=== PATIENT | female | born 1945 | race Caucasian/White ===

== ENCOUNTER 2022-08-26 14:03 | Outpatient (REF) | payer MEDICARE, OTHER, SELFPAY ==
[2022-08-26 14:16] LABS: MANUAL DIFF FLAG NO
[2022-08-26 14:41] LABS: Basophils Percent Auto 0.5 % (0-2); Eosinophils Absolute Auto 0.1 X10*3/uL (0.0-0.4); Eosinophils Percent Auto 2.1 % (0-4); Hematocrit 45.1 % (37.0-47.0); Hemoglobin 14.9 g/dl (12.0-16.0); Imm Gran Abs Auto 0.01 X10*3/uL (0.00-0.03); Imm Gran Pct Auto 0.2 % (0.0-0.4); Lymphocytes Absolute Auto 1.3 X10*3/uL (1.2-4.9); Lymphocytes Percent Auto 22.8 % (20-40); Mean Corpuscular Hemoglobin 29.3 pg (27.0-33.0); Mean Corpuscular Volume 88.8 fL (80.0-98.0); Mean Platelet Volume 8.9 fL (9.4-12.3); Monocytes Absolute Auto 0.8 X10*3/uL (0.1-1.2); Neutrophils Absolute Auto 3.5 x10*3/uL (2.0-8.3); Neutrophils Percent Auto 61.4 % (45-73); Platelet Count 299 X10*3/uL (160-400); Red Blood Count 5.08 X10*6/uL (4.20-5.50); White Blood Count 5.8 X10*3/uL (4.8-10.8)
[2022-08-26 15:09] LABS: Alanine Aminotransferase 28 U/L (0-31); Albumin Level 4.5 g/dL (3.5-5.0); Alkaline Phosphatase 88 U/L (39-117); Anion Gap 18 (12-20); Aspartate Amino Transferase 28 U/L (5-31); Bilirubin Total 0.6 mg/dL (0.0-1.0); Blood Urea Nitrogen 33 mg/dL (9-16); Calcium 9.4 mg/dL (8.4-10.2); Carbon Dioxide 25 mmol/L (22-29); Chloride 105 mmol/L (96-108); Estimated Glomerular Filt Rate > 60; Glucose Random 94 mg/dL (60-115); Potassium 4.1 mmol/L (3.3-5.1); Sodium 144 mmol/L (135-145); Total Protein 7.2 g/dL (6.5-8.0)
== END 2022-08-26 14:04 | disposition home or self-care (01) ==
LOC: HO.LAB 14:03
PROVIDERS: PCP Family Medicine; Visit Provider Nurse Practitioner
DX: Z01.818 Encounter for other preprocedural examination (principal); D12.6 Benign neoplasm of colon, unspecified
CPT/HCPCS: 36415; 80053; 85025; 99202

== ENCOUNTER 2023-01-14 06:35 | Day surgery (SDC) | payer MEDICARE, SELFPAY ==
[2023-01-11 14:02] VITALS: BMI 35.2
--- NOTE | 2023-01-13 13:38 | P.CONAN_ITS ---
Documented by User: Linda Varghese NP 01/13/23 13:38 HPI - Anesthesia Eval Consult details Narrative: 77yo F for Colonoscopy [facility] Active Problems Active Problems: All Active Problems (Updated 01/11/23 @ 14:01 by Tara Garcia, AMANDEEP) Osteopenia (Acute) Tubular adenoma of colon (Acute) Obesity (BMI 30-39.9) (Acute) Pre-op examination (Acute) Past Medical History Medical History Endometrial cancer Osteopenia Surgical History Surgical History H/O colonoscopy History of total abdominal hysterectomy S/P left knee arthroscopy Status post total left knee replacement Social History Social History Patient Tobacco Use Status: Never used Tobacco Use of substances other than those prescribed or required for medical reasons: No Are you DNR?: No Advance Directives: No Advance Directives Information Provided: Yes Nutrition Risks: No Nutritional Risk Meds Allergies Allergy/AdvReac Type Severity Reaction Status Date / Time No Known Allergies Allergy Unverified 08/26/22 13:10 Home Medications Medication Instructions Recorded Confirmed Last Taken Type alendronate 70 mg tablet 70 mg PO QWEEK 08/26/22 01/11/23 Unknown History Exam Exam Date and Time: January 13, 2023 1338 Height,Weight and Vital Signs: Height 5 ft 1.5 in Weight 86 kg Pertinent Lab Results Pertinent Lab Results: Laboratory Tests 08/26/22 08/26/22 14:16 14:16 WBC 5.8 Hgb 14.9 Hct 45.1 Plt Count 299 Sodium 144 Potassium 4.1 Chloride 105 Carbon Dioxide 25 BUN 33 H Creatinine 0.90 Assessment and Plan Assessment Anesthesia Assessment: Chart Reviewed Documented by User: Hazel Wynn MD 01/14/23 08:10 PMF Past Medical History Medical History Endometrial cancer Osteopenia Family History Family history of problems with anesthesia: No Surgical History Surgical History H/O colonoscopy History of total abdominal hysterectomy S/P left knee arthroscopy Status post total left knee replacement History of Problems with Anesthesia: No Social History Social History Patient Tobacco Use Status: Never used Tobacco Use of substances other than those prescribed or required for medical reasons: No Are you DNR?: No Advance Directives: No Advance Directives Information Provided: Yes Nutrition Risks: No Nutritional Risk Meds Allergies Allergy/AdvReac Type Severity Reaction Status Date / Time No Known Allergies Allergy Unverified 08/26/22 13:10 Home Medications Medication Instructions Recorded Confirmed Last Taken Type alendronate 70 mg tablet 70 mg PO QWEEK 08/26/22 01/11/23 Unknown History Exam Height,Weight and Vital Signs: Height 5 ft 1.5 in Weight 86 kg Vital Signs Temp Pulse Resp BP Pulse Ox O2 Del Method 01/14/23 07:14 98.8 F 80 16 127/72 96 Room Air Airway Mallampati Class: III (Small mouth opening) TM Dist: >3cm Neck ROM: Full Loose/Missing/Broken Teeth: No (Denies broken, loose, missing teeth) Heart: RRR Lungs: CTAB Assessment and Plan Assessment Anesthesia Assessment: Anesthesia Plan Discussed Final Anesthetic Review Family History of Problems with Anesthesia: No History of Problems with Anesthesia: No NPO: Yes ASA Class: II Final Preanesthetic Review: No Changes in Pt Med Stat, Meds/Allgs Chart Reviewed, Consent Obtained/Reviewed and Anes Risks/Benef Reviewed Patient Risk: Low Procedure Risk: Low Assessment/Block/Sedation in SS: Assess/Block/Sedation-SS Anesthetic Plan Anesthetic Plan: MAC: Disposition: Standard PACU
[2023-01-14 07:04] VITALS: BMI 35.1
[2023-01-14 07:14] VITALS: BP 127/72; PULSE 80; RESP 16; TEMP 37.1; O2SAT 96
[2023-01-14] MEDS: Lactated Ringers 1,000 ML 100 ML IVCONT (07:31)
--- NOTE | 2023-01-14 07:33 | ECG_ITS ---
Test Reason : pre op colonoscopy Blood Pressure : / mmHG Vent. Rate : 077 BPM Atrial Rate : 077 BPM P-R Int : 156 ms QRS Dur : 084 ms QT Int : 386 ms P-R-T Axes : 015 -36 -02 degrees QTc Int : 436 ms Normal sinus rhythm Left axis deviation Possible Lateral infarct , age undetermined Abnormal ECG When compared with ECG of 26-JUN-2009 12:36, Borderline criteria for Lateral infarct are now Present Referred By: Hazel Wynn Electronically Signed By:DIVINE FERGUSON
--- NOTE | 2023-01-14 08:11 | MHC.SHP ---
Pre-Procedural Eval Section A Date of Service: 01/14/23 Section B Chief Complaint: screening Relevant Family History (Specify if Yes): No Relevant Social History: None Present Medications: see Short Stay Collaborative assessment Medical History: Significant History (History of endometrial cancer Osteopenia Obesity History of tubular adenoma) History of Previous Operations: Relevant previous surgery/procedure and date(s) (Left knee replacement Diagnostic laparoscopic surgery Hysterectomy Colonoscopy -2002, 2008, 2016, [place]) Allergies: Allergies Allergy/AdvReac Type Severity Reaction Status Date / Time No Known Allergies Allergy Unverified 08/26/22 13:10 Review of Systems Sugical H&P ROS: Negative: Constitution, Cardiovascular, Respiratory, Neurological, Psychiatric, Hem-Onc, Allergic/Immunologic, Gastrointestinal, Genitourinary, Musculoskeletal, Integumentary, Endocrine and Eyes/Ears/Nose/Throat Exam Surgical H&P Exam: Normal: HEENT, Normal: Heart, Normal: Lungs, Normal: Extremities, Normal: Abdomen, Normal: Skin and Normal: Neurological Plan Diagnosis/Plan: Unchanged I have reviewed the history and physical and performed a pertinent physical examination on my patient. No changes have occurred unless specified. Time Spent With Patient Time: Total time managing care of this patient today ____ minutes.
--- NOTE | 2023-01-14 08:13 | W.PM.OPN ---
Operative Note Operative Note Date of Service: 01/14/23 Narrative: Operative Information Procedure Description: Colonoscopy Indication: screening Anesthesia: MAC COLONOSCOPY Instrument: Olympus variable stiffness pediatric scope 190L Colonoscopy Monitoring: Vital signs and clinical assessment, continuous EKG monitoring, Pulse oximetry, Carbon Dioxide monitoring and blood pressure monitoring were done throughout the procedure. Colon withdrawal time was 8 minutes. Procedure: The patient was placed in the left lateral decubitis position and pre-procedure medications were administered. After a digital rectal examination of the ano-rectum, the video colonoscope was inserted into the rectum and advanced through the colon to the cecum/TI. The colonoscope was slowly withdrawn in a retrograde panoramic fashion and the colon mucosa was carefully examined including a retroflexed view of the rectum. Findings and interventions are described below. Procedure Difficulty: moderate, redundant colon Findings: Terminal Ileum-normal Cecum:normal Ascending Colon: normal Transverse Colon -normal Descending Colon:normal Sigmoid Colon: moderate diverticulosis Rectum: Retroflexion with small internal hemorrhoids, grade I Anorectum - normal Colon preparation: [place] Bowel Preparation Scale Right colon; 2 Transverse colon: 2 Left colon; 2 (0 = Unprepared colon segment with mucosa not seen due to solid stool that cannot be cleared. 1 = Portion of mucosa of the colon segment seen, but other areas of the colon segment not well seen due to staining, residual stool and/or opaque liquid. 2 = Minor amount of residual staining, small fragments of stool and/or opaque liquid, but mucosa of colon segment seen well. 3 = Entire mucosa of colon segment seen well with no residual staining, small fragments of stool or opaque liquid) Impression and Post Procedure Diagnosis: internal hemorrhoids diverticular disease Plan: High fiber diet leaflet Avoid straining at stool, epsom salts and sitz bath, anusol supps or cream Repeat Colonoscopy in 5 years due to hx of polyps if health allows, or earlier if clinically indicated and if patient desires otherwise this would be her last screening colonoscopy Above findings were reviewed with the patient and relevant handouts were provided if indicated.
[2023-01-14 08:57] VITALS: BP 117/66; PULSE 80; RESP 20; TEMP 36.7; O2SAT 97
[2023-01-14 09:12] VITALS: BP 139/85; PULSE 78; RESP 20; TEMP 37.3; O2SAT 97
== END 2023-01-14 09:38 | disposition home or self-care (01) ==
PROVIDERS: PCP Family Medicine; Visit Provider Internal Medicine Gastroenterology
PROC: 0DJD8ZZ Inspection of Lower Intestinal Tract, Via Natural or Artificial Opening Endoscopic (ICD-10-PCS; CPT 45378; principal; 2023-01-14 08:10)
DX: Z12.11 Encounter for screening for malignant neoplasm of colon (principal); Z86.010 Personal history of colon polyps; K57.30 Diverticulosis of large intestine without perforation or abscess without bleeding; K64.0 First degree hemorrhoids; Z85.42 Personal history of malignant neoplasm of other parts of uterus; M85.879 Other specified disorders of bone density and structure, unspecified ankle and foot; E66.9 Obesity, unspecified; Z68.35 Body mass index [BMI] 35.0-35.9, adult; Z79.899 Other long term (current) drug therapy; Z90.710 Acquired absence of both cervix and uterus; Z96.652 Presence of left artificial knee joint
CPT/HCPCS: G0105; 93005

== ENCOUNTER → 2023-02-04 13:10 | Outpatient (BNVA) | payer MEDICARE, SELFPAY | PROVIDERS: PCP Family Medicine; Visit Provider Nurse Practitioner | DX: D12.6 Benign neoplasm of colon, unspecified (principal) | CPT/HCPCS: 99212 ==